=== PATIENT | female | born 1970 | race Caucasian/White ===

== ENCOUNTER → 2019-06-14 | Outpatient (CLI) | payer BC, OTHER | END | disposition home or self-care (01) | LOC: CVU 07:30 | PROVIDERS: ATTEND Internal Medicine Cardiovascular Disease | DX: I65.23 Occlusion and stenosis of bilateral carotid arteries (principal); E78.5 Hyperlipidemia, unspecified | CPT/HCPCS: 93880 ==

== ENCOUNTER 2019-11-19 10:56 | Outpatient (CLI) | payer OTHER | END 2019-11-19 23:59 | disposition home or self-care (01) | LOC: CFH 10:56 | PROVIDERS: ATTEND Internal Medicine Cardiovascular Disease | DX: Q85.1 Tuberous sclerosis (principal); E78.5 Hyperlipidemia, unspecified | CPT/HCPCS: 93306 ==